=== PATIENT | female | born 1970 | race Two or more races ===

== ENCOUNTER → 2019-06-26 | Outpatient (CLI) | payer OTHER | END | disposition home or self-care (01) | LOC: SONOGRAMA 12:01 | DX: N60.11 Diffuse cystic mastopathy of right breast (principal); N60.12 Diffuse cystic mastopathy of left breast; N63.11 Unspecified lump in the right breast, upper outer quadrant ==

== ENCOUNTER 2019-09-01 06:39 | Day surgery (SDC) | payer OTHER | END 2019-09-01 17:05 | disposition home or self-care (01) | LOC: CIR.AMB 06:39 | DX: D05.01 Lobular carcinoma in situ of right breast (principal) ==

== ENCOUNTER 2019-12-11 14:58 | Inpatient (IN) | payer OTHER ==
[~2019-12-11] VITALS: Ht 157.5 cm; Wt 56.7 kg
== END 2019-12-25 14:40 | DRG 743 ==
LOC: ADM 12-18 07:30 → OB/GYN 12-21 07:25 → O/R 12-21 07:25 → EDSTATUS 12-21 07:30 → CIR.AMB 12-21 07:30 → OB/GYN 12-21 09:15
PROVIDERS: ADMIT Obstetrics & Gynecology; ATTEND Obstetrics & Gynecology
PROC: 0UT70ZZ Resection of Bilateral Fallopian Tubes, Open Approach (ICD-10-PCS; 2019-12-21)
PROC: 0UT20ZZ Resection of Bilateral Ovaries, Open Approach (ICD-10-PCS; 2019-12-21)
PROC: 0UT90ZZ Resection of Uterus, Open Approach (ICD-10-PCS; principal; 2019-12-21 09:15)
DX: D25.1 Intramural leiomyoma of uterus (principal); D25.2 Subserosal leiomyoma of uterus; N80.0 Endometriosis of uterus; N83.11 Corpus luteum cyst of right ovary; N83.292 Other ovarian cyst, left side; N84.1 Polyp of cervix uteri; N71.1 Chronic inflammatory disease of uterus; N93.8 Other specified abnormal uterine and vaginal bleeding; N99.89 Other postprocedural complications and disorders of genitourinary system; R33.8 Other retention of urine

== ENCOUNTER 2020-02-21 10:49 | Outpatient (CLI) | payer OTHER | END 2020-02-21 10:58 | disposition home or self-care (01) | LOC: SONOGRAMA 10:49 | PROVIDERS: ATTEND Urology | DX: N39.42 Incontinence without sensory awareness (principal) ==

== ENCOUNTER 2020-06-28 07:10 | Day surgery (SDC) | payer OTHER | END 2020-06-28 23:50 | disposition home or self-care (01) | LOC: CIR.AMB 07:10 | PROVIDERS: ATTEND Surgery | DX: D24.1 Benign neoplasm of right breast (principal); N60.01 Solitary cyst of right breast; Z20.828 Contact with and (suspected) exposure to other viral communicable diseases ==